=== PATIENT | male | born 1965 | race Caucasian/White ===

== ENCOUNTER 2019-08-14 15:36 | Outpatient (CLI) | payer OTHER ==
--- NOTE | 2019-08-14 16:49 | Diagnostic Imaging Report ---
Indication: Cough Technique: 2 views of the chest Comparison: None Findings: Lungs and pleural spaces are clear. The heart size is normal. The bones are unremarkable sent for mild degenerative spondylosis changes. Impression: Negative
== END 2019-08-14 17:36 | disposition home or self-care (01) ==
LOC: RAD 15:36
DX: R05 Cough (principal)
CPT/HCPCS: 71046